=== PATIENT | female | born 1945 | race Caucasian/White ===

== ENCOUNTER 2016-06-16 14:42 | Emergency (ER) | payer MEDICARE ==
--- NOTE | 2016-06-16 14:58 | Emergency Department Record ---
History of Present Illness - General Chief complaint: Extremity Problem Stated complaint: RIGHT KNEE PAIN Time Seen by Provider: 06/16/16 14:57 Source: Patient Mode of Arrival: Wheelchair Limitations: No limitations - History of Present Illness Initial comments: The patient is here due to R knee pain. She initially injured it about 8 days ago by mildly twisting it. Today she tried walking on it and it became much more painful. The pain is over the lateral area of the knee and does radiate up and down the leg at times. There has been no direct impact trauma or fall. She also denies any fever, chills, calf pain or leg swelling. MD Complaint: Extremity pain Onset/Timin -: Days(s) Location: Right, Knee History of Same: No Severity scale (1-10): 6 Quality: Sharp, Stabbing Consistency: Constant Improves with: Immobilization, Rest Worsens with: Exertion, Walking, Weight bearing Associated Symptoms: Denies other symptoms - Related Data Home Medications Medication Instructions Recorded Confirmed Last Taken No Home Med [NO HOME MEDS] 06/16/16 06/16/16 Unknown Allergies Allergy/AdvReac Type Severity Reaction Status Date / Time No Known Drug Allergies Allergy Verified 06/16/16 14:47 Travel Screening - Travel/Exposure Within Last 30 Days Have you traveled within the last 30 days?: No - Travel/Exposure Within Last Year Have you traveled outside the [place] in the last year?: No - Additonal Travel Details Have you been exposed to anyone with a communicable illness?: No - Travel Symptoms Symptom Screening: None Review of Systems Constitutional: Denies: Chills, Fever, Malaise Past Medical History - SOCIAL HISTORY Smoking Status: Never smoker Alcohol Use: None Drug Use: None - RESPIRATORY Hx Respiratory Disorders: No - CARDIOVASCULAR Hx Cardio Disorders: No - NEURO Hx Neuro Disorders: No - GI Hx GI Disorders: No - Hx Genitourinary Disorders: No - ENDOCRINE Hx Endocrine Disorders: No - MUSCULOSKELETAL Hx Musculoskeletal Disorders: No - PSYCH Hx Psych Problems: No - HEMATOLOGY/ONCOLOGY Hx Hematology/Oncology Disorders: No Family Medical History Any Significant Family History?: Yes Hx Cancer: Father, Mother Hx Heart Disease: Father Hx Stroke: Mother *Stroke Comment: 92 yr old Physical Exam - General General Appearance: Alert, Oriented x3, Cooperative, No acute distress - Head Head exam: Atraumatic, Normocephalic, Normal inspection - Eye Eye exam: Normal appearance, PERRL - Extremities Extremities exam: Normal inspection, Normal capillary refill, Tenderness (There is diffuse lateral joint line tenderness.), Other (The R lower leg is NVI with normal pulses.). negative: Calf tenderness (The calf is very soft and nontender with no edema.), Full ROM (There is decreased flexion due to pain past 70 degrees.), Joint swelling (There is no effusion.), Pedal edema Course Vital Signs 06/16/16 14:48 Temperature 97.6 F Pulse Rate 69 Respiratory 12 Rate Blood Pressure 136/70 Pulse Ox 96 - Reevaluation(s) Reevaluation #1: I did discuss the xrays with the patient and the need for F/U with Ortho this week. 06/16/16 15:42 Medical Decision Making - Data Complexity MDM Data: X-Ray Ordered and/or Reviewed - Radiology Data Radiology results: Report reviewed (R knee: Neg) Disposition Disposition: Discharge Clinical Impression: Acute knee pain Qualifiers: Laterality: right Qualified Code(s): M25.561 - Pain in right knee Disposition: Home, Self-Care Condition: (1) Good Instructions: Knee Pain (ED) Additional Instructions: Please use ice on the painful area every 2 hours while awake for 15-20 minutes. Please use Alleve or Motrin for pain and use the Immobilizer and crutches for walking. Please see Dr. Mcdowell later this week for recheck. Referrals: ARTI MCDOWELL [DOCTOR OF OSTEOPATH] - Forms: Patient Portal Access Time of Disposition: 15:44
[2016-06-16] MEDS ORDERED: IBUPROFEN 400 MG TABLET PO ONE (15:08)
--- NOTE | 2016-06-18 09:20 | RADIOLOGY REPORT ---
DATE: 06/13/2016. EXAM: RIGHT KNEE, THREE VIEWS. HISTORY: Twisted right knee eight days prior. Lateral and posterior pain. COMPARISON: None. TECHNIQUE: Three views of the right knee were obtained. FINDINGS: The soft tissues are unremarkable. Trace knee joint effusion. No fracture or malalignment. Overall mild degenerative changes. Spurring of the tibial spines. IMPRESSION: NO ACUTE RIGHT KNEE ABNORMALITY. MILD DEGENERATIVE CHANGE. JOB NUMBER: [id number] [facility]
== END 2016-06-16 15:54 | disposition home or self-care (01) ==
LOC: ER 14:42
DX: M25.561 Pain in right knee (principal)
CPT/HCPCS: 99283

== ENCOUNTER 2016-06-26 08:29 | Day surgery (SDC) | payer MEDICARE ==
[~2016-06-26 08:29] MED LIST: ACETAMINOPHEN 1000MG/100 ML PREMIX IV ONE
[2016-06-26 09:04] LABS: BASO % 0.6 % (0-6); EOS % 1.3 % (0-6); GRAN % 59.8 % (47-80); HEMATOCRIT 45.7 % (35.0-47.0); HEMOGLOBIN 15.3 gm/dl (11.6-16.0); LYMPH % 30.7 % (16-45); MEAN CELL VOLUME 96.6 fl (81-97); MEAN CORPUSCULAR HEMOGLOBIN 32.3 pg (27-33); MEAN CORPUSCULAR HGB CONC 33.5 g/dl (32-36); MEAN PLATELET VOLUME 11.3 fl (7.4-10.4); MONO % 7.6 % (0-9); PLATELET COUNT 187 K/uL (130-400); RED BLOOD COUNT 4.73 M/uL (3.80-5.40)
[2016-06-26] MEDS ORDERED: HYDROCODONE/APAP 7.5/325MG TABLET PO ONE (13:30)
[2016-06-26] MEDS ORDERED: FENTANYL PF 100MCG/2ML VIAL IV ONE (13:30)
[2016-06-26] MEDS ORDERED: BUPIVACAINE 0.25% W/EPI MPF 30ML VIAL IVP ONE (13:30)
[2016-06-26] MEDS ORDERED: DESFLURANE 240 ML BTL INH ONE (13:43)
[2016-06-26] MEDS ORDERED: LIDOCAINE 2% MDV (20MG/ML) 20ML VIAL IV ONE (13:43)
[2016-06-26] MEDS ORDERED: KETOROLAC 30 MG/ML VIAL IVP ONE (13:43)
[2016-06-26] MEDS ORDERED: PROPOFOL 10 MG/ML VIAL IV ONE (13:43)
--- NOTE | 2016-06-27 09:01 | Operative Note ---
DATE OF SURGERY: 06/26/2016. SURGEON: Yazan Kincaid D.O. REFERRING PHYSICIAN: Braeden Sheehan M.D. PREOPERATIVE DIAGNOSES: 1. TORN MEDIAL MENISCUS OF THE RIGHT KNEE. 2. CHONDROMALACIA OF THE RIGHT KNEE. 3. SYNOVITIS OF THE RIGHT KNEE. POSTOPERATIVE DIAGNOSES: 1. TORN MEDIAL AND LATERAL MENISCUS OF THE RIGHT KNEE. 2. SYNOVITIS OF THE RIGHT KNEE (TWO COMPARTMENTS). 3. CHONDROMALACIA OF THE MEDIAL FEMORAL CONDYLE, LATERAL FEMORAL CONDYLE, AND TROCHLEA OF THE RIGHT KNEE. OPERATIVE PROCEDURE: 1. Arthroscopic partial medial and lateral meniscectomy of the right knee. 2. Arthroscopic partial synovectomy of the right knee (two compartments). 3. Arthroscopic chondroplasty of the medial femoral condyle, lateral femoral condyle, and trochlea of the right knee. DESCRIPTION OF PROCEDURE: This 70-year-old female was taken to the operating room and was placed in the supine position on the operating room table. General anesthesia was induced. The right lower extremity was elevated and exsanguinated. A tourniquet was inflated to 300 mm Hg. An arthroscopic knee caruso was applied. The right knee was prepped with Hibiclens and draped in the usual sterile fashion. An inferolateral portal was established for the 4.0 mm arthroscope. Initial evaluation of the joint demonstrated normal appearance of the suprapatellar pouch. The patella also appeared to be relatively normal. However, the entire trochlea demonstrated significant degenerative change. There was a lesion approximately 1.5 cm x 2.0 cm in the trochlea which demonstrated grade 2 to 3 changes. A chondroplasty was performed in this location to stabilize the remaining articular cartilage. The medial compartment was entered, and grade 3 chondromalacia of the medial femoral condyle was present. Loose fragments of articular cartilage were present, and this was shaved with the rotating shaver. There was also a root tear of the medial meniscus which was resected. The anterior cruciate ligament was evaluated and was found to be normal. The lateral compartment was entered. Small radial tears of the lateral meniscus also were present. The rotating shaver and basket forceps were used to trim these to stable edge. A chondroplasty was also performed for grade 2 chondromalacia of the lateral femoral condyle. Reprobing of the menisci did not demonstrate any instability of the menisci. The wound was copiously irrigated and suctioned. All areas were re-examined with no additional findings being present. We did perform a synovectomy on the medial and lateral compartments secondary to inflammatory change of the synovium there. The joint was suctioned and the instruments were removed. The portals were infiltrated with 0.25% Marcaine with epinephrine. Sterile dressings were applied. The tourniquet knee caruso was released. The patient was taken to the recovery room in satisfactory condition. GROSS PATHOLOGY: This patient demonstrated tears of both menisci as described above as well as synovitis and chondromalacia grade 3 of the medial femoral condyle, grade 2 of the lateral femoral condyle, and grade 3 of the trochlea being identified. Yazan Kincaid D.O. Date Time Job Number: [id number] [facility]
== END 2016-06-26 13:07 | disposition home or self-care (01) ==
LOC: SUR 08:29
PROVIDERS: ATTEND Orthopaedic Surgery
DX: S83.241A Other tear of medial meniscus, current injury, right knee, initial encounter (principal); S83.281A Other tear of lateral meniscus, current injury, right knee, initial encounter; E78.00 Pure hypercholesterolemia, unspecified; M94.261 Chondromalacia, right knee; M65.861 Other synovitis and tenosynovitis, right lower leg
CPT/HCPCS: 29880; 29876; 01400; 84550; 85025; 93005; 93010; J1885; J3010